=== PATIENT | male | born 1935 | race Two or more races ===

== ENCOUNTER 2017-10-13 17:49 | Emergency (ER) | payer OTHER ==
[~2017-10-13] VITALS: Ht 182.9 cm; Wt 99.8 kg
[~2017-10-13 17:49] MED LIST: ACET325 PO; ALLO300 PO; AMLO10 PO; AMLO5 PO; AMOCLA875 PO; ANTIBIOTIC PO; ARTTEAOPSO BOTHEYES; ASPI325; ASPI325EC; ASPI81CH PO; ASPI81EC PO; ATEN100; ATOR10; AZO PO; Aspir 8181 MG PO; BENAML10/5; BENAML20/5 PO; BISA10S PR; CALCA500CH PO; CENTRUM COMPLE1 EACH PO; CEPACOL SORE T1 EACH MM; CETI10 PO; CETI5 PO; CHOL10002; CHOL10002 PO; CIPR500 PO; CIPRO; CIPRO500 MG PO; CITA20 PO; CLON.1; CLON.1 PO; CLON.2; CRANBERRY450 M1 PO; DESL5; DIOVAN; DIOVAN/HCTZ; DOCU100 PO; DONE10 PO; DULO60 PO; EAR WAX DROPS15 ML BOTHEYES; FISH OIL 1,2001 EAC2 PO; FISH1000 PO; FLUO20; FLUT.05NI; GABA100 PO; GABA300 PO; GENPREOPSU; GLIM2 PO; HYDACE5 PO; HYDCOR2.5B TOP; HYDR1TAB94 PO; Hair, Skin & N1 EACH PO; INSUASPI SC; INSULANI SC; INSULANPEN SC; Invanz1 GM IV; KETO120T TOP; KETO15TC TOP; LEVCAR2510 PO; LEVO750 PO; LISI10 PO; LISI20 PO; LISI5 PO; LORA1 PO; LORA10ER; LOTE.5SUSP; Levaquin500 MG PO; METO25ER PO; METO50 PO; MOM PO; MULVITMIND PO; MYLANTA; Miralax17 GM PO; Multivitamin W1 EAC5 PO; Neurontin 300300 MG PO; Norco 7.5-3251 EACH PO; OMEPRAZOLE MAGN20 MG PO; OXYACE5T PO; OXYGEN; PANT40 PO; PRAZ5 PO; PRED1SU LEFTEYE; PRED5 PO; PROP30DR OU; Percocet 5-3251 EACH PO; Pred Forte1 ML LEFTEYE; Pyridium100 MG PO; QUET25; QUET25 PO; ROSU5 PO; SIMV80 PO; SKIEMOTL12 TOP; SOLI5 PO; TAMS.4ER; TAMS.4ER PO; TELM80; TERA5 PO; TIMDOROPSO; TRAM50 PO; TRAZ100 PO; TRAZ50 PO; TRIA80TC TOP; ZOLP5 PO; Zofran8 MG PO; [UNRECOGNIZED DRUG - OTHER]
[2017-10-13 18:33] LABS: BASOPHILS ABSOLUTE AUTO 0.06 K/mm3 (0.00-0.23); BASOPHILS PERCENT AUTO 1 % (0-2); EOSINOPHILS ABSOLUTE AUTO 0.44 K/mm3 (0.00-0.68); EOSINOPHILS PERCENT AUTO 5 % (0-6); Hematocrit 33.1 % (37.0-53.0); Hemoglobin 10.5 g/dL (13.5-17.5); IMMATURE GRAN ABSOLUTE AUTO 0.04 K/mm3 (0.00-0.10); IMMATURE GRAN PERCENT AUTO 0 % (0-1); LYMPHOCYTES ABSOLUTE AUTO 1.74 K/mm3 (0.84-5.20); LYMPHOCYTES PERCENT AUTO 18 % (21-46); MONOCYTES ABSOLUTE AUTO 0.49 K/mm3 (0.16-1.47); MONOCYTES PERCENT AUTO 5 % (4-13); Mean Corpuscular HGB 27.2 pg (26.0-34.0); Mean Corpuscular HGB Conc 31.7 g/dL (31.5-36.5); Mean Corpuscular Volume 86 fL (80-100); Mean Platelet Volume 10.4 fL (9.1-12.4); NEUTROPHILS ABSOLUTE AUTO 6.86 K/mm3 (1.96-9.15); NEUTROPHILS PERCENT AUTO 71 % (41-73); Platelet Count 290 K/mm3 (150-400); RDW Coefficient Variation 14.6 % (11.7-14.2); RDW Standard Deviation 45.6 fL (35.1-46.3); Red Blood Cell Count 3.86 M/mm3 (4.30-5.90); White Blood Cell Count 9.63 K/mm3 (4.00-11.30)
[2017-10-13 18:49] LABS: Alanine Aminotransfer (ALT/SGP 10 U/L (12-78); Albumin, Blood 2.5 g/dL (3.4-5.0); Albumin/Globulin Ratio 0.6 (0.8-1.8); Alk Phos 100 U/L (50-136); Anion Gap 7 mmol/L (6-16); Aspartate Aminotrans (AST/SGOT 16 U/L (12-37); Bilirubin, Total 0.2 mg/dL (0.1-1.0); Blood Urea Nitrogen 32 mg/dL (8-24); Bun/Creatinine Ratio 12.9 (12.0-20.0); CO2, Blood 30 mmol/L (21-32); Calcium, Blood 8.4 mg/dL (8.5-10.1); Chloride, Blood 106 mmol/L (98-108); Creatinine, Blood 2.49 mg/dL (0.60-1.20); Globulin, Blood 4.3 g/dL (2.2-4.0); Glomerular Filtration Rate 26 (60-); Glucose, Blood 194 mg/dL (70-99); Potassium, Blood 4.5 mmol/L (3.5-5.5); Sodium, Blood 143 mmol/L (136-145); Total Protein, Blood 6.8 g/dL (6.4-8.2); Troponin I <0.015 ng/mL (0.000-0.040)
[2017-10-13 18:58] LABS: International Normalized Ratio 1.02; Prothrombin Time Results 10.6 Sec (9.7-11.5)
[2017-10-13] MEDS ORDERED: Pepcid40 MG PO (21:26)
[2017-10-13] MEDS ORDERED: HYDR1TAB94 PO (21:26)
== END 2017-10-13 21:50 | disposition home or self-care (01) ==
LOC: ER 17:49
PROVIDERS: Emergency Medicine
DX: R07.9 Chest pain, unspecified (principal); E11.9 Type 2 diabetes mellitus without complications; I10 Essential (primary) hypertension; F03.90 Unspecified dementia, unspecified severity, without behavioral disturbance, psychotic disturbance, mood disturbance, and anxiety; Z79.899 Other long term (current) drug therapy; Z79.82 Long term (current) use of aspirin; Z79.52 Long term (current) use of systemic steroids; Z79.2 Long term (current) use of antibiotics; Z86.73 Personal history of transient ischemic attack (TIA), and cerebral infarction without residual deficits
CPT/HCPCS: 71045; 80053; 83690; 83880; 84443; 84484; 85025; 85610; 93005; 93010; 96374; 99284

== ENCOUNTER → 2018-02-16 | Outpatient (CLI) | payer OTHER ==
[~2018-02-16] MED LIST changes: +Pepcid40 MG PO
[2018-02-16 15:52] LABS: Bilirubin, Urine Neg (Neg); Blood, Urine Neg (Neg); Glucose Qualitative, Urine 1+ (Neg); Ketones, Urine Neg (Neg); Leukocyte Esterase, Urine Neg (Neg); Nitrite, Urine Neg (Neg); Protein, Urine 3+ (Neg); Specific Gravity, Urine 1.015 (1.003-1.022); Urobilinogen, Urine NORM (Normal)
[2018-02-16 16:02] LABS: Appearance, Urine Clear (Clear); Color, Urine Yellow (P-Yellow)
[2018-02-16 16:07] LABS: Bacteria Not Seen /hpf; Red Blood Cells, Urine Not Seen /hpf (0-2); Squamous Epithelial Cells Not Seen /hpf (Few); White Blood Cells, Urine Not Seen /hpf (0-5)
== END ==
LOC: LAB RH 08:00 → EDSTATUS 13:06 → LAB RH 15:40
PROVIDERS: Nurse Practitioner Family
DX: N18.3 Chronic kidney disease, stage 3 (moderate) (principal); N40.0 Benign prostatic hyperplasia without lower urinary tract symptoms
CPT/HCPCS: 81001

== ENCOUNTER 2018-03-30 14:17 | Emergency (ER) | payer OTHER ==
[~2018-03-30] VITALS: Ht 170.2 cm; Wt 90.7 kg
[2018-03-30] MEDS ORDERED: INSULANPEN SC (14:43)
== END 2018-03-30 15:57 | disposition home or self-care (01) ==
LOC: ER 14:17
DX: Z04.3 Encounter for examination and observation following other accident (principal); G20 Parkinson's disease; F02.80 Dementia in other diseases classified elsewhere, unspecified severity, without behavioral disturbance, psychotic disturbance, mood disturbance, and anxiety; E11.9 Type 2 diabetes mellitus without complications; I10 Essential (primary) hypertension; Z79.899 Other long term (current) drug therapy; Z79.82 Long term (current) use of aspirin; Z79.4 Long term (current) use of insulin; Z86.73 Personal history of transient ischemic attack (TIA), and cerebral infarction without residual deficits; W07.XXXA Fall from chair, initial encounter
CPT/HCPCS: 36415; 93005; 93010; 99283

== ENCOUNTER → 2018-06-11 | Outpatient (CLI) | payer OTHER ==
[2018-06-11 08:50] LABS: Source, Urine Clean Catch
[2018-06-11 09:50] LABS: Bilirubin, Urine Neg (Neg); Blood, Urine 1+ (Neg); Glucose Qualitative, Urine Neg (Neg); Ketones, Urine Neg (Neg); Leukocyte Esterase, Urine 1+ (Neg); Nitrite, Urine Neg (Neg); Protein, Urine 4+ (Neg); Urobilinogen, Urine NORM (Normal); pH, Urine 6.5 (5.0-8.0)
[2018-06-11 10:10] LABS: Appearance, Urine Clear (Clear); Color, Urine Yellow (P-Yellow)
[2018-06-11 10:11] LABS: White Blood Cells, Urine 25-50 /hpf (0-5)
[2018-06-11 10:12] LABS: Bacteria Rare /hpf; Mucus Light (0-Heavy); Squamous Epithelial Cells Rare /hpf (Few)
== END ==
LOC: LAB RH 08:49 → EDSTATUS 11:30
PROVIDERS: Nurse Practitioner Family
DX: N39.0 Urinary tract infection, site not specified (principal)
CPT/HCPCS: 81001; 87077; 87086; 87186

== ENCOUNTER 2018-09-24 03:28 | Emergency (ER) | payer OTHER ==
[~2018-09-24] VITALS: Ht 167.6 cm; Wt 99.8 kg
[2018-09-24 03:50] LABS: BASOPHILS ABSOLUTE AUTO 0.07 K/mm3 (0.00-0.23); BASOPHILS PERCENT AUTO 1 % (0-2); EOSINOPHILS ABSOLUTE AUTO 0.46 K/mm3 (0.00-0.68); EOSINOPHILS PERCENT AUTO 5 % (0-6); Hematocrit 36.3 % (37.0-53.0); Hemoglobin 11.6 g/dL (13.5-17.5); IMMATURE GRAN ABSOLUTE AUTO 0.04 K/mm3 (0.00-0.10); IMMATURE GRAN PERCENT AUTO 0 % (0-1); LYMPHOCYTES PERCENT AUTO 17 % (21-46); MONOCYTES ABSOLUTE AUTO 0.52 K/mm3 (0.16-1.47); MONOCYTES PERCENT AUTO 6 % (4-13); Mean Corpuscular HGB 29.4 pg (26.0-34.0); Mean Corpuscular Volume 92 fL (80-100); NEUTROPHILS ABSOLUTE AUTO 6.62 K/mm3 (1.96-9.15); NEUTROPHILS PERCENT AUTO 71 % (41-73); Platelet Count 227 K/mm3 (150-400); RDW Coefficient Variation 13.8 % (11.7-14.2); RDW Standard Deviation 46.9 fL (35.1-46.3); Red Blood Cell Count 3.95 M/mm3 (4.30-5.90); White Blood Cell Count 9.31 K/mm3 (4.00-11.30)
[2018-09-24] MEDS ORDERED: Ferrous Sulfat325 M2 PO (04:05)
[2018-09-24] MEDS ORDERED: TAMS.4ER PO (04:05)
[2018-09-24 04:07] LABS: Albumin, Blood 2.7 g/dL (3.4-5.0); Albumin/Globulin Ratio 0.6 (0.8-1.8); Bilirubin, Total 0.3 mg/dL (0.1-1.0); Bun/Creatinine Ratio 12.1 (12.0-20.0); Calcium, Blood 8.4 mg/dL (8.5-10.1); Creatinine, Blood 3.38 mg/dL (0.60-1.20); Globulin, Blood 4.3 g/dL (2.2-4.0); Troponin I 0.044 ng/mL (0.000-0.040)
[2018-09-24] MEDS ORDERED: CHOL10002 PO (04:07)
[2018-09-24] MEDS ORDERED: ACID REDUCER 1150 MG PO (04:08)
[2018-09-24] MEDS ORDERED: METO25ER PO (04:09)
[2018-09-24] MEDS ORDERED: Carbidopa-Levo1 EAC1 PO (04:10)
[2018-09-24] MEDS ORDERED: HYDR10 PO (04:10)
[2018-09-24] MEDS ORDERED: GUAI600T33 PO (04:11)
[2018-09-24] MEDS ORDERED: NEOPOLDEXO BOTHEYES (04:11)
[2018-09-24] MEDS ORDERED: TRAM50 PO (04:13)
== END 2018-09-24 07:15 | disposition home or self-care (01) ==
LOC: ER 03:28
PROVIDERS: Emergency Medicine
DX: I48.91 Unspecified atrial fibrillation (principal); Z79.899 Other long term (current) drug therapy; Z79.82 Long term (current) use of aspirin; Z79.4 Long term (current) use of insulin; Z79.52 Long term (current) use of systemic steroids; E11.9 Type 2 diabetes mellitus without complications; I10 Essential (primary) hypertension; Z86.73 Personal history of transient ischemic attack (TIA), and cerebral infarction without residual deficits
CPT/HCPCS: 71046; 73560-LT; 80053; 83690; 83880; 84484; 85025; 93005; 93010; 99285-25